=== PATIENT | female | born 1985 | race Caucasian/White ===

== ENCOUNTER 2020-09-15 09:10 | Emergency (ER) | payer MEDICAID ==
[~2020-09-15] VITALS: Ht 157.5 cm; Wt 71.4 kg
[2020-09-15 11:05] VITALS: BP 105/80
[2020-09-15] MEDS ORDERED: acetaminophen 325mg tablet PO ONE (11:15)
[2020-09-15] MEDS ORDERED: HYDROcodone/acetaminophen 5mg/325mg tablet PO ONE (11:25)
[2020-09-15] MEDS ORDERED: HYDR-3965 PO (11:55)
== END 2020-09-15 12:02 | disposition home or self-care (01) ==
LOC: ER 09:11
DX: S99.911A Unspecified injury of right ankle, initial encounter (principal); Z79.899 Other long term (current) drug therapy; X50.1XXA Overexertion from prolonged static or awkward postures, initial encounter; Y93.89 Activity, other specified; Y92.89 Other specified places as the place of occurrence of the external cause; Y99.8 Other external cause status
CPT/HCPCS: 73610; 73630; 99284